=== PATIENT | female | born 1990 | race American Indian/Alaskan Native ===

== ENCOUNTER 2016-05-09 11:45 | Emergency (ER) | payer SELFPAY ==
[2016-05-09] MEDS ORDERED: KEPPRA 1,000 MG/NS 0.75% 100ML 100 ML IV ONE (12:42)
--- NOTE | 2016-05-09 12:48 | Emergency Department Report ---
HPI - General Chief Complaint: Seizure Time Seen by Provider: 05/09/16 12:35 - HPI HPI: Room 7 The patient is a 25-year-old female presenting with a chief complaint of seizure. The patient was in class when classmate states the patient complained of feeling dizzy and then "fainted" striking her face on the table and had a generalized tonic-clonic seizure. Coworkers believed that lasted approximately 8 minutes. They state of the patient's right arm was in an PHYSICIAN during the seizure. The patient now only complains of pain in the right shoulder and tone. Patient denies any other complaints. Patient has had a history of seizures since age 6 months. The patient states she's been placed on Keppra in the past but she does not take the medication Location: Central nervous system, see above Duration: see above Quality: Generalized tonic-clonic Severity: Moderate Modifying factors: see above Context: see above Mode of transportation: not driving ED Past Medical Hx - Past Medical History Previous Medical History?: Yes Hx Seizures: Yes Hx Asthma: Yes - Surgical History Past Surgical History?: Yes Additional Surgical History: c section - Family History Family history: no significant - Social History Smoking Status: Never Smoker Substance Use Type: Marijuana - Medications Home Medications: Home Medications Medication Instructions Recorded Confirmed Last Taken Type Ibuprofen [Motrin 800 MG tab] 800 mg PO Q8HR PRN #20 tablet 05/09/16 Unknown Rx levETIRAcetam [Keppra TAB] 500 mg PO BID #90 tablet 05/09/16 Unknown Rx ED Review of Systems ROS: Stated complaint: SEIZURES Other details as noted in HPI Comment: All other systems reviewed and negative Constitutional: denies: chills, fever Eyes: denies: eye pain, eye discharge, vision change ENT: other (tongue soreness). denies: ear pain, throat pain Respiratory: denies: cough, shortness of breath, wheezing Cardiovascular: denies: chest pain, palpitations Endocrine: no symptoms reported Gastrointestinal: denies: abdominal pain, nausea, diarrhea Genitourinary: denies: urgency, dysuria, discharge Musculoskeletal: myalgia Skin: denies: rash, lesions Neurological: denies: headache, weakness, paresthesias Psychiatric: denies: anxiety, depression Hematological/Lymphatic: denies: easy bleeding, easy bruising Physical Exam - Physical Exam Vital Signs: Vital Signs 05/09/16 05/09/16 12:21 12:29 Temperature 98.4 F Pulse Rate 90 Respiratory 16 Rate Blood Pressure 111/58 O2 Sat by Pulse 98 99 Oximetry Physical Exam: GENERAL: The patient is well-developed well-nourished female lying on stretcher not appear to be in acute distress. [] HEENT: Normocephalic. Atraumatic. Extraocular motions are intact. Patient has moist mucous membranes. Abrasion to the left lateral aspect of the NECK: Supple. Trachea midline CHEST/LUNGS: Clear to auscultation. There is no respiratory distress noted. HEART/CARDIOVASCULAR: Regular. There is no tachycardia. There is no gallop rub or murmur. ABDOMEN: Abdomen is soft, nontender. Patient has normal bowel sounds. There is no abdominal distention. SKIN: There is no rash. There is no edema. There is no diaphoresis. NEURO: The patient is awake, alert, and oriented. The patient is cooperative. The patient has no focal neurologic deficits. The patient has normal speech. Cranial nerves II through XII grossly intact, no drift, assistant paralegal 5+/5 bilaterally. MUSCULOSKELETAL: There is no deformity of the right shoulder. There is no limitation range of motion. There is no evidence of acute injury. ED Course Vital Signs 05/09/16 05/09/16 12:21 12:29 Temperature 98.4 F Pulse Rate 90 Respiratory 16 Rate Blood Pressure 111/58 O2 Sat by Pulse 98 99 Oximetry ED Medical Decision Making - Radiology Data Radiology results: image reviewed (right shoulder x-ray) interpreted by me: Right shoulder x-ray-no acute fracture, no dislocation - Differential Diagnosis epilepsy Critical care attestation.: If time is entered above; I have spent that time in minutes in the direct care of this critically ill patient, excluding procedure time. ED Disposition Clinical Impression: Seizure, Contusion of right shoulder, Abrasion of tongue Disposition: DISCHARGED TO HOME OR SELFCARE Is pt being admited?: No Does the pt Need Aspirin: No Condition: Stable Instructions: Epilepsy (ED) Additional Instructions: Return to the emergency department immediately should you develop worsening symptoms, fever, inability to tolerate food or liquid or any other concerns. Prescriptions: Ibuprofen [Motrin 800 MG tab] 800 mg PO Q8HR PRN #20 tablet PRN Reason: Pain levETIRAcetam [Keppra TAB] 500 mg PO BID #90 tablet Referrals: PRIMARY CARE, [Primary Care Provider] - 3-5 Days AMISHA LYNCH MD [Staff Physician] - 3-5 Days (Dr. Lynch is a neurologist. Please follow up with him for further evaluation and management of your seizures ) Time of Disposition: 13:43
--- NOTE | 2016-05-09 13:12 | XRay Report ---
Right shoulder 3 views: History: Pain after fall. Findings: A.c. joint and glenohumeral joint appears unremarkable. There is focal density identified at the lateral aspect of the humeral head superior to the tuberosity. This may be old fracture or calcification or ossification. Impression: Findings as detailed above. CT scan or MRI scan may be recommended for further evaluation.
[2016-05-09] MEDS ORDERED: MOTRIN PO ONE (13:42)
[2016-05-09 14:55] VITALS: BP 110/72
== END 2016-05-09 14:55 | disposition home or self-care (01) ==
LOC: ED 11:45
DX: S40.011A Contusion of right shoulder, initial encounter (principal); S00.512A Abrasion of oral cavity, initial encounter; R56.9 Unspecified convulsions; J45.909 Unspecified asthma, uncomplicated; F12.90 Cannabis use, unspecified, uncomplicated; W22.03XA Walked into furniture, initial encounter; Y93.89 Activity, other specified; Y99.9 Unspecified external cause status; Y92.89 Other specified places as the place of occurrence of the external cause
CPT/HCPCS: 73030; 96365; 99284; J1953